=== PATIENT | female | born 1985 | race Caucasian/White ===

== ENCOUNTER 2022-07-10 10:54 | Outpatient (CLI) | payer OTHER, SELFPAY ==
[2022-07-10 12:38] LABS: Chloride* 105 mmol/L (96-114)
[2022-07-10 12:39] LABS: Potassium* 4.2 mmol/L (3.6-5.1); Sodium* 139 mmol/L (135-149)
[2022-07-10 12:41] LABS: Carbon Dioxide* 23 mmol/L (20-32); Creatinine* 0.7 mg/dL (0.5-1.5); Estimated Glomerular Filt Rate 114 ml/min
[2022-07-10 12:42] LABS: Blood Urea Nitrogen* 11 mg/dL (5-24); Calcium* 8.9 mg/dL (8.4-10.6); Glucose* 84 mg/dL (60-115)
[2022-07-10 21:41] LABS: H pylori Ag Stool* Negative (Negative)
== END 2022-07-10 10:55 | disposition home or self-care (01) ==
PROVIDERS: PCP Physician Assistant Medical; Visit Provider Physician Assistant Medical
DX: K21.9 Gastro-esophageal reflux disease without esophagitis (principal)
CPT/HCPCS: 80048; 87338

== ENCOUNTER 2023-05-14 08:57 | Outpatient (CLI) | payer OTHER, SELFPAY ==
--- NOTE | 2023-05-14 09:15 | MR_ITS ---
[address] [address] Phone:?[phone] Fax:?[phone] Referring Physician Information: Brooks Yin M.D. [id number] [facility] [address] Phone:?[phone] Fax:[phone] Patient:Francisca Fam D.O.B:?1985 Sex:?Female Phone:?[phone] [facility] MRN:?[id number] Exam Date:?05/14/2023 EXAM: MRI of the RIGHT HIP, without contrast CLINICAL HISTORY: Origin of right hamstring tear. Strain muscle, fascia, and tendon of the right hip. COMPARISONS: Plain radiographs 05/06/2023. TECHNICAL: MR sequences of the right hip: Axials: PD FS Axial oblique: PD Coronals: PD, T2 Coronal pelvis: T1 and STIR Sagittals: PD and T2 CONTRAST: None SEDATION: None FINDINGS: Pelvis osseous structures: Sacrum: No fracture or destructive osseous lesion is seen of the imaged portions of the sacrum. Sacroiliac joints: No convincing evidence of sacroiliitis of the imaged portions of the sacroiliac joints. Pubic rami: Unremarkable. Symphysis pubis: There is no evidence of acute osteitis pubis. Labrum: There is near full-thickness linear tear within the base of the right hip labrum from the 2 o'clock position anterosuperiorly through 3 o'clock position anteriorly best seen on axial oblique series 6 images 17 through 15. Hip joint: Physiologic amount of joint fluid. No chondral loss is seen although it must be noted that the cartilage is not optimally evaluated by this nonarthrogram study. No subchondral bone marrow edema or subchondral cystic change is seen. Proximal femur: No fracture, osseous stress injury, avascular necrosis, or suspicious bone marrow signal abnormality is seen. No convincing femoral cam morphology. Acetabulum: No subchondral cysts, periacetabular ossicles or marrow edema. Coverage: Right lateral center edge (CE) angle measures approximately 42? (normal 25?-39?) correcting for coronal pelvic tilt, midline coronal series 5 images 15. Ligamentum teres: Unremarkable. Myotendinous structures: Gluteus abductors: The gluteus minimus and medius tendons are unremarkable. Rectus abdominis-adductor longus aponeurosis, adductors, and rectus abdominis: There is low-grade partial tear of the posterior portion of the right gluteus minimus tendon insertion best seen on axial series 7 images 16 through 20. The right gluteus medius tendon is intact. Hamstrings: There is moderate tendinopathy and ill-defined low-grade partial tearing of the right conjoined hamstring tendon at the right ischial tuberosity attachment best seen on coronal series 2 image 24 and axial series 7 images 20 through 25. There is a 2.8 x 4.0 x 1.0 cm bursal-like collection within the right ischiofemoral space best seen on axial series 7 images 21 through 28. The right quadratus femoris space measures 9 mm. The right ischiofemoral space measures 17 mm. Flexors: The iliopsoas and rectus femoris tendons are intact. Gluteal aponeurotic fascia and IT band: Unremarkable. Pelvic soft tissues: Unremarkable. IMPRESSION: 1. Moderate tendinopathy and ill-defined low-grade partial tearing of the right conjoined hamstring tendon at the right ischial tuberosity attachment. 2. 2.8 x 4.0 x 1.0 cm bursal-like collection within the right ischiofemoral space and borderline narrowed right quadratus femoris and ischiofemoral spaces are findings that raise concern for ischiofemoral impingement. 3. Near full-thickness linear tear within the base of the right hip labrum from the 2 o'clock position anterosuperiorly through 3 o'clock position anteriorly. 4. Right acetabular overcoverage with a lateral center edge angle of 42 degrees measured on a midline coronal image. 5. No fracture or osseous stress injury of the right hip. RCB Electronically signed on 05/14/2023 12:50:00 PM by Rony Malone M.D.
== END 2023-05-14 08:58 | disposition home or self-care (01) ==
LOC: MRI 08:58
PROVIDERS: PCP Physician Assistant Medical; Visit Provider Orthopaedic Surgery Sports Medicine
DX: S76.311A Strain of muscle, fascia and tendon of the posterior muscle group at thigh level, right thigh, initial encounter (principal); S73.101A Unspecified sprain of right hip, initial encounter
CPT/HCPCS: 73721

== ENCOUNTER 2025-06-19 09:37 | Outpatient (CLI) | payer OTHER, SELFPAY ==
[2025-06-20 15:37] LABS: HPV Source Cervical
[2025-06-21 16:44] LABS: Pap Test Digital Imaging Done
== END 2025-06-19 09:38 | disposition home or self-care (01) ==
PROVIDERS: Visit Provider Obstetrics & Gynecology
DX: E78.5 Hyperlipidemia, unspecified (principal); Z12.4 Encounter for screening for malignant neoplasm of cervix; Z11.51 Encounter for screening for human papillomavirus (HPV)
CPT/HCPCS: 80061; 87624; 87625; 88141; 88142; 88175

== ENCOUNTER 2025-06-20 15:42 | Outpatient (CLI) | payer OTHER, SELFPAY ==
--- NOTE | 2025-06-20 15:45 | CRLHL7_ITS ---
For Patients: As a result of the Century Cures Act, medical imaging exams and procedure reports are released immediately into your electronic medical record. You may view this report before your referring provider. If you have questions, please contact your health care provider. INDICATION: AUB, intermittent bleeding between cycles COMPARISON: None. TECHNIQUE: 2D flood-scale and color Doppler images were acquired of the pelvis using a transabdominal and transvaginal approach. Transvaginal imaging performed to better visualize the endometrial stripe and ovaries. FINDINGS: Sonographic images demonstrate a normal size and smooth outer contour of the uterus. Uterus measures 8.6 cm in length by 4.5 cm in AP diameter by 5.7 cm in transverse dimension. The myometrium has a normal uniform echotexture. The endometrial lining and measures 8.4 mm in composite thickness. The right ovary measures 2.9 x 2.1 x 2.1 cm in size and the left ovary measures 3.1 x 2.2 x 1.8 cm. The ovaries demonstrate normal arterial and venous blood flow on color Doppler analysis. There are no suspicious fluid collections within the cul-de-sac. IMPRESSION: Endometrium measures 8.4 millimeters. No endometrial fluid or uterine fibroid. Dictated by Da Taveras MD @ 06/25/2025 11:33:33 AM (Electronically Signed)
== END 2025-06-20 15:43 | disposition home or self-care (01) ==
LOC: US 15:43
PROVIDERS: Visit Provider Obstetrics & Gynecology
DX: N93.9 Abnormal uterine and vaginal bleeding, unspecified (principal); R93.89 Abnormal findings on diagnostic imaging of other specified body structures
CPT/HCPCS: 76830; 76856

== ENCOUNTER 2025-10-19 15:22 | Outpatient (CLI) | payer OTHER, SELFPAY ==
--- NOTE | 2025-10-19 15:20 | CRLHL7_ITS ---
For Patients: As a result of the Cures Act, medical imaging exams and procedure reports are released immediately into your electronic medical record. You may view this report before your referring provider. If you have questions, please contact your health care provider. INDICATION: BILATERAL SCREENING MAMMOGRAM, ASYMPTOMATIC 39 Y/O FEMALE COMPARISON: NONE BASELINE TECHNIQUE: Digital mammogram in CC and MLO projections including computer-aided detection (CAD) and tomosynthesis. BREAST COMPOSITION: The breasts are heterogeneously dense, which may obscure small masses. FINDINGS: No suspicious findings. ASSESSMENT: BI-RADS 1 Negative RECOMMENDATION: Annual screening mammogram. A lay language report of this examination will be provided to the patient. Dictated by: Da Taveras MD @ 10/22/2025 09:33:12 (Electronically Signed)
== END 2025-10-19 15:23 | disposition home or self-care (01) ==
LOC: MAMMO 15:22
PROVIDERS: Visit Provider Obstetrics & Gynecology
DX: Z12.31 Encounter for screening mammogram for malignant neoplasm of breast (principal); R92.333 Mammographic heterogeneous density, bilateral breasts
CPT/HCPCS: 77063; 77067